=== PATIENT | female | born 1935 | race Caucasian/White ===

== ENCOUNTER 2018-07-19 10:12 | Outpatient (CLI) | payer MEDICARE, OTHER, SELFPAY ==
--- NOTE | 2018-07-19 10:06 | DI.RAD_ITS ---
SYMPTOMS/DIAGNOSIS: PAIN RIGHT FOOT: Three views. No acute fracture or dislocation is seen. At the 1st metatarsophalangeal joint, there is joint space narrowing and periarticular spurring. There are prominent osteophytes at the talonavicular joint. Mild degenerative changes are also noted at the tarsometatarsal joints and the interphalangeal joints of the foot. Subchondral cysts are seen at several joints, particularly the 2nd metatarsophalangeal joint. The soft tissues are grossly unremarkable. There do appear to be hammertoe deformities of the 2nd, 3rd and 4th toes. IMPRESSION: Degenerative changes of the right foot.
== END 2018-07-19 10:32 ==
PROVIDERS: PCP Emergency Medicine; Visit Provider Orthopaedic Surgery
DX: M19.071 Primary osteoarthritis, right ankle and foot; Z96.653 Presence of artificial knee joint, bilateral
CPT/HCPCS: 99214; 73630; L1902

== ENCOUNTER 2018-08-16 11:29 | Outpatient (CLI) | payer MEDICARE, OTHER, SELFPAY ==
[2018-08-16 13:07] LABS: Anion Gap 7.3 mmol/L (3-11); BUN 23 mg/dL (7-18); CO2 29.7 mmol/L (21.0-32.0); CREATININE 1.01 mg/dL (0.55-1.02); Calcium 9.4 mg/dL (8.5-10.1); Chloride 102 mmol/L (98-107); Estimated GFR 52.74 (mL/min/1.73m2); Glucose 97 mg/dL (70-100); Potassium 4.7 mmol/L (3.5-5.1); Sodium 139 mmol/L (136-145)
== END 2018-08-16 11:49 ==
PROVIDERS: PCP Emergency Medicine; Visit Provider Emergency Medicine
DX: I10 Essential (primary) hypertension (principal)
CPT/HCPCS: 36415; 80048

== ENCOUNTER 2019-08-29 08:14 | Outpatient (CLI) | payer MEDICARE, OTHER, SELFPAY ==
[2019-08-29 10:52] LABS: Anion Gap 8.1 mmol/L (3-11); BUN 22 mg/dL (7-18); CO2 28.9 mmol/L (21.0-32.0); CREATININE 0.92 mg/dL (0.55-1.02); Calcium 8.9 mg/dL (8.5-10.1); Chloride 103 mmol/L (98-107); Estimated GFR 58.59 (mL/min/1.73m2); Glucose 92 mg/dL (74-106); Potassium 4.4 mmol/L (3.5-5.1); Sodium 140 mmol/L (136-145)
== END 2019-08-29 08:34 ==
PROVIDERS: PCP Emergency Medicine; Visit Provider Emergency Medicine
DX: I10 Essential (primary) hypertension (principal)
CPT/HCPCS: 36415; 80048

== ENCOUNTER → 2019-10-31 08:40 | Outpatient (BNVA) | payer MEDICARE, OTHER, SELFPAY | PROVIDERS: PCP Emergency Medicine; Referring Provider Emergency Medicine; Visit Provider Surgery | DX: Z12.11 Encounter for screening for malignant neoplasm of colon (principal); Z12.12 Encounter for screening for malignant neoplasm of rectum ==

== ENCOUNTER 2019-11-13 06:05 | Day surgery (SDC) | payer MEDICARE, SELFPAY ==
[2019-11-13 06:39] VITALS: BP 177/81; PULSE 78; RESP 16; TEMP 36.6; O2SAT 95
--- NOTE | 2019-11-13 06:41 | W.COLOREPORT ---
Date of service: 11/13/19 Time of Service: :57 Colonoscopy Report Date of procedure: 11/13/19 Pre-op diagnosis general: Colon Cancer Screening, Hx of colon polyp Post-op diagnosis procedure note: other (polyps and diverticulosis) Procedure: Colonoscopy with polypectomy Surgeon: Nery Fofana Anesthesia proc note operative: other (General/ ASA 2/Dinesh Bustillos, CHAITANYA ) Estimated blood loss (mL): 3 Pathology: other (Transverse polyp, Sigmoid polyps x3) Complications: None Disposition: same day Indications: Mrs. Fabian is a pleasant 84-year-old female who is in very good health and is referred to my office today for a screening colonoscopy. Her last colonoscopy was in 2006. At that time she was noted to have one hyperplastic polyp and diverticulosis. She denies any changes in bowel habits, melena, hematochezia, unintentional weight loss or family history of colon cancer. Risks, benefits and complications have been reviewed. Complications include but are not limited to bleeding, pain, perforation, missed small lesion/polyp, sore throat, aspiration and adverse reaction to the medications. Questions were entertained and answered to their satisfaction and they wished to proceed. No guarantees were given or implied. Prep: Miralax/Dulcolax Procedure Start Time: 07:30 Procedure End Time: :57 Retraction Time: 19 minutes Findings: 4 small sessile polyps and moderate diverticulosis Procedure Description: After informed consent was obtained the patient was taken to the procedure room and placed in a left decubitous position. Monitors were applied and a time out was done. The patients name, date of , procedure, allergies to medications and metal in their body was reviewed. The patient was then sedated. Once sedated and comfortable a rectal exam was done. External exam was normal. Internal exam revealed a normal sphincter tone and no palpable masses. The scope was then introduced and retro-flexed. No internal hemorrhoids were identified. The scope was then advanced to the cecum without difficulty. The TI and appendiceal orifice were identified. The prep was adequate. The scope was then slowly retracted over 19 minutes back into the rectum. Polyps were removed with cold forceps in the transverse colon and sigmoid colon x3. There was moderate diverticulosis of the descending and sigmoid colon. The scope was removed and the patient was woken up and taken back to Same day surgery in stable condition. The patient tolerated the procedure well and there were no immediate complications. Follow up: The patient should follow up in as needed due to her age, unless they develop changes in bowel habits or other new gastrointestinal complaints.
--- NOTE | 2019-11-13 06:42 | W.PM.DSUDISC ---
Discharge Plan Disposition Patient Disposition: HOME Condition: Good Discharge Details Reason For Visit: Colon Cancer Screening Attending Provider: Nery Fofana Primary Care Provider: Hamilton Swanson Home Meds and New Rx's Prescriptions: Continued aspirin [Aspirin Low-Strength] 81 MG tablet,chewable 1 tab.chew PO DAILY RF: 0 ergocalciferol (vitamin D2) 400 UNIT tablet 400 units PO DAILY RF: 0 naproxen sodium [Aleve] 220 MG capsule 440 mg PO PRN PRNRF: 0 lisinopril-hydrochlorothiazide 10-12.5 mg tablet 1 tab PO DAILY Qty: 90 RF: 4 pravastatin 20 mg tablet 20 mg PO DAILY Qty: 90 RF: 4 tumeric/pepper 4 tab PO DAILY RF: 0 50 Plus Adult [facility] Health 1 EACH capsule 1 ea PO DAILY RF: 0 Discontinued bisacodyl [Dulcolax (bisacodyl)] 5 mg tablet,delayed release (DR/EC) 5 mg PO ONCE Qty: 4 RF: 0 polyethylene glycol 3350 17 gram powder in packet 255 g PO DAILY Qty: 15 RF: 0 Discharge Instructions Instructions: Diverticulosis (DC), Colorectal Polyps (GEN) Additional Instructions: Findings: 4 small polyps Diverticulosis Follow up: as needed Please call if you develop: fevers >101.5 Nausea or Vomiting Abdominal pain that is not transient DAY SURGERY UNIT POST ENDOSCOPY INSTRUCTIONS 1. Because there will be medication in your system for the next 24 hours, you may feel a little sleepy. Your coordination will be affected. Therefore: a. Do not drive or operate dangerous equipment for 24 hours. b. Do not drink alcohol beverages for 24 hours (not even beer). c. Plan to go home and rest for the day. 2. Generally there are no restrictions on your activity after a day or so has gone by, but you may feel a bit fatigued for a few days. 3 After you arrive home you may have a light meal and return to a normal diet as you can tolerate it without feeling sick to your stomach. 4. After surgery, you may feel pain or discomfort. This should be only transient, but if it persists please contact your doctor. 5. If there are any questions regarding the findings of your procedure, please feel free to contact your doctor. 6. If you are unable to contact your doctor with a problem, contact the hospital at [phone]. 7. Continue all your regular medications unless directed otherwise. I understand the above instructions and have no questions. Signature of Patient or Responsible Adult Escort Date/Time Name of Responsible Adult Escort Signature of Nurse Date/Time Activity:: Activity as Tolerated Diet:: High Fiebr diet Discharge Orders Discharge Orders: Discharge Order (Routine); Ordered 11/13/19 Ordered By: Nery Fofana
[2019-11-13] MEDS: Lactated Ringers 1,000 ML 80 ML IV (07:05)
--- NOTE | 2019-11-13 07:42 | BOWEL_PTH ---
PATIENT: Neal Fabian LOC: [facility] U#:[id number] AGE/SX: 84/F ROOM: RE11/13/[address]: Nery Fofana MD : [id number] BED: DIS: 11/13/2019 SPEC #: [id number] RECD: 11/13/19 12:32 STATUS: BESSIE REQ #: [id number] MAGNO: 11/13/19 07:[address]: Nery Fofana DEPT: Surgical Specimen RECD BY: iSena Salcedo ENTERED: 11/13/19 12:33 SP TYPE: Bowel OTHR DR: Hamilton Swanson DO Tissues: 1 - BIOPSY BOWEL 2 - BIOPSY BOWEL Procedures: GROSS AND MICRO LEVEL 4 Comments: [id number]
[2019-11-13 09:23] VITALS: BP 139/61; PULSE 68; RESP 20; TEMP 36.4; O2SAT 95
== END 2019-11-13 09:15 | disposition home or self-care (01) ==
PROVIDERS: PCP Emergency Medicine; Visit Provider Surgery
PROC: 0DJD8ZZ Inspection of Lower Intestinal Tract, Via Natural or Artificial Opening Endoscopic (ICD-10-PCS; CPT 45378; principal; 2019-11-13 07:30)
DX: Z12.11 Encounter for screening for malignant neoplasm of colon (principal); D12.3 Benign neoplasm of transverse colon; K63.5 Polyp of colon; K57.30 Diverticulosis of large intestine without perforation or abscess without bleeding; Z87.19 Personal history of other diseases of the digestive system; I10 Essential (primary) hypertension
CPT/HCPCS: 45380; 88305

== ENCOUNTER 2020-06-05 11:24 | Outpatient (CLI) | payer MEDICARE, OTHER, SELFPAY ==
--- NOTE | 2020-06-05 11:00 | DI.RAD_ITS ---
EXAM: XR KNEE RT 2V AP,LAT INDICATION: right knee pain. COMPARISON: CR RIGHT KNEE LIMITED 1 OR 2 VIEW from 05/26/2017 CR RIGHT KNEE LIMITED 1 OR 2 VIEW from 07/12/2017 TECHNIQUE: 2D digital imaging was performed. 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 DATA REPOSITORY: RADIATION DOSE DELIVERED:
== END 2020-06-05 11:44 ==
PROVIDERS: PCP Emergency Medicine; Referring Provider Emergency Medicine; Visit Provider Orthopaedic Surgery
DX: M25.561 Pain in right knee (principal); M70.51 Other bursitis of knee, right knee; Z96.653 Presence of artificial knee joint, bilateral; I10 Essential (primary) hypertension
CPT/HCPCS: 99213; 73560

== ENCOUNTER 2021-07-03 10:19 | Outpatient (CLI) | payer MEDICARE, OTHER, SELFPAY ==
[2021-07-03 12:29] LABS: Anion Gap 8.6 mmol/L (3-11); BUN 25 mg/dL (7-18); CO2 28.4 mmol/L (21.0-32.0); Calcium 9.5 mg/dL (8.5-10.1); Chloride 102 mmol/L (98-107); Estimated GFR 52.95 (mL/min/1.73m2); Glucose 87 mg/dL (74-106); Potassium 4.8 mmol/L (3.5-5.1); Sodium 139 mmol/L (136-145)
== END 2021-07-03 10:20 | disposition home or self-care (01) ==
LOC: LOS 10:20
PROVIDERS: PCP Emergency Medicine; Visit Provider Emergency Medicine
DX: I10 Essential (primary) hypertension (principal)
CPT/HCPCS: 36415; 80048

== ENCOUNTER 2021-11-21 10:56 | Outpatient (CLI) | payer MEDICARE, OTHER, SELFPAY ==
--- NOTE | 2021-11-21 10:53 | DI.RAD_ITS ---
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 The components appear wel l seated. No other significant bony abnormality seen. IMPRESSION: RADIATION DOSE DELIVERED: Total DLP
--- NOTE | 2021-11-21 10:53 | DI.RAD_ITS ---
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 The components appear wel l seated. No other significant bony abnormality seen. IMPRESSION: RADIATION DOSE DELIVERED: Total DLP
== END 2021-11-21 10:57 | disposition home or self-care (01) ==
LOC: DIORS 10:57
PROVIDERS: PCP Emergency Medicine; Referring Provider Emergency Medicine; Visit Provider Student in an Organized Health Care Education/Training Program
DX: T84.84XA Pain due to internal orthopedic prosthetic devices, implants and grafts, initial encounter (principal); Z96.653 Presence of artificial knee joint, bilateral; M25.561 Pain in right knee; M70.51 Other bursitis of knee, right knee; M25.562 Pain in left knee
CPT/HCPCS: 99214; 73560

== ENCOUNTER 2022-05-01 09:28 | Outpatient (CLI) | payer MEDICARE, SELFPAY ==
[2022-05-01 13:26] LABS: Calculated LDL 123 mg/dL (<100); Cholesterol 214 mg/dL (<200); HDL Cholesterol 62 mg/dL (40-60); Triglyceride 148 mg/dL (<150)
== END 2022-05-01 09:29 | disposition home or self-care (01) ==
LOC: LOS 09:29
PROVIDERS: PCP Family Medicine; Visit Provider Emergency Medicine
DX: I10 Essential (primary) hypertension (principal)
CPT/HCPCS: 36415; 80061

== ENCOUNTER → 2022-06-25 11:05 | Outpatient (CLI) | payer MEDICARE, SELFPAY ==
--- NOTE | 2022-06-25 07:00 | DI.RAD_ITS ---
Exam(s) XR SHOULDER RT COMPLETE 2+V EXAM: XR SHOULDER RT COMPLETE 2+V CLINICAL HISTORY: right shoulder pain,subacromial bursitis, m75.51 TECHNIQUE: COMPARISON: No exams were available for comparison FINDINGS: Five views were obtained. There a appears to be mild narrowing of the glenohumeral cartilaginous amadeo nt space. There are moderate hypertrophic degenerative changes at the AC joint and glenohumeral join t. No soft tissue calcification identified. No other significant bony or soft tissue abnormality se en. IMPRESSION: RADIATION DOSE DELIVERED: Total DLP
== END ==
PROVIDERS: PCP Family Medicine; Visit Provider Family Medicine
DX: M75.51 Bursitis of right shoulder (principal)
CPT/HCPCS: 73030

== ENCOUNTER 2022-08-28 01:07 | Outpatient (CLI) | payer MEDICARE, SELFPAY ==
[2022-08-28 12:58] LABS: Anion Gap 8.4 mmol/L (3-11); BUN 29 mg/dL (7-18); CO2 28.6 mmol/L (21.0-32.0); Calcium 9.4 mg/dL (8.5-10.1); Chloride 101 mmol/L (98-107); Estimated GFR 55.55 (mL/min/1.73m2); Glucose 97 mg/dL (74-106); Sodium 138 mmol/L (136-145)
== END 2022-08-28 01:08 | disposition home or self-care (01) ==
LOC: LBO 01:07
PROVIDERS: PCP Family Medicine; Visit Provider Family Medicine
DX: I10 Essential (primary) hypertension (principal)
CPT/HCPCS: 36415; 80048

== ENCOUNTER 2023-06-28 03:29 | Outpatient (CLI) | payer MEDICARE, SELFPAY ==
[2023-06-28 12:40] LABS: Anion Gap 10.7 mmol/L (3-11); BUN 27 mg/dL (7-18); CO2 26.3 mmol/L (21.0-32.0); CREATININE 1.1 mg/dL (0.55-1.02); Calcium 9.6 mg/dL (8.5-10.1); Chloride 101 mmol/L (98-107); Estimated GFR 49.24 (mL/min/1.73m2); Glucose 95 mg/dL (74-106); Potassium 4.2 mmol/L (3.5-5.1); Sodium 138 mmol/L (136-145)
== END 2023-06-28 03:30 | disposition home or self-care (01) ==
PROVIDERS: PCP Family Medicine; Visit Provider Family Medicine
DX: I10 Essential (primary) hypertension (principal)
CPT/HCPCS: 36415; 80048

== ENCOUNTER 2024-01-25 05:01 | Outpatient (CLI) | payer MEDICARE, SELFPAY ==
[2024-01-25 12:24] LABS: Anion Gap 6.5 mmol/L (3-11); BUN 26 mg/dL (7-18); CO2 28.5 mmol/L (21.0-32.0); CREATININE 1.4 mg/dL (0.55-1.02); Calcium 9.7 mg/dL (8.5-10.1); Chloride 103 mmol/L (98-107); Estimated GFR 36.64 (mL/min/1.73m2); Glucose 115 mg/dL (74-106); Magnesium 1.8 mg/dL (1.8-2.4); Potassium 4.4 mmol/L (3.5-5.1); Sodium 138 mmol/L (136-145)
== END 2024-01-25 05:02 | disposition home or self-care (01) ==
LOC: LOS 05:01
PROVIDERS: PCP Family Medicine; Visit Provider Family Medicine
DX: I10 Essential (primary) hypertension (principal)
CPT/HCPCS: 36415; 80048; 83735

== ENCOUNTER 2024-03-13 03:20 | Outpatient (CLI) | payer MEDICARE, SELFPAY ==
[2024-03-13 13:00] LABS: Anion Gap 8.8 mmol/L (3-11); BUN 34 mg/dL (7-18); CO2 27.2 mmol/L (21.0-32.0); CREATININE 1.2 mg/dL (0.55-1.02); Calcium 9.2 mg/dL (8.5-10.1); Chloride 100 mmol/L (98-107); Estimated GFR 44.08 (mL/min/1.73m2); Glucose 102 mg/dL (74-106); Potassium 4.7 mmol/L (3.5-5.1); Sodium 136 mmol/L (136-145)
== END 2024-03-13 03:21 | disposition home or self-care (01) ==
LOC: LOS 03:20
PROVIDERS: PCP Family Medicine; Visit Provider Family Medicine
DX: I10 Essential (primary) hypertension (principal)
CPT/HCPCS: 36415; 80048

== ENCOUNTER 2025-01-08 09:30 | Outpatient (CLI) | payer MEDICARE, SELFPAY ==
[2025-01-08 12:38] LABS: Anion Gap 6.6 mmol/L (3-11); BUN 34 mg/dL (7-18); CO2 29.4 mmol/L (21.0-32.0); CREATININE 1.2 mg/dL (0.55-1.02); Calcium 9.6 mg/dL (8.5-10.1); Chloride 103 mmol/L (98-107); Estimated GFR 43.81 (mL/min/1.73m2); Glucose 94 mg/dL (74-106); Potassium 4.7 mmol/L (3.5-5.1); Sodium 139 mmol/L (136-145)
== END 2025-01-08 09:31 | disposition home or self-care (01) ==
LOC: LOS 09:30
PROVIDERS: PCP Family Medicine; Visit Provider Family Medicine
DX: Z13.1 Encounter for screening for diabetes mellitus (principal); I10 Essential (primary) hypertension
CPT/HCPCS: 36415; 80048

== ENCOUNTER 2025-07-16 03:35 | Outpatient (CLI) | payer MEDICARE, SELFPAY ==
[2025-07-16 14:08] LABS: Anion Gap 6.9 mmol/L (3-11); BUN 31 mg/dL (7-18); CO2 29.1 mmol/L (21.0-32.0); Calcium 9.1 mg/dL (8.5-10.1); Chloride 99 mmol/L (98-107); Glucose 83 mg/dL (74-106); Potassium 4.4 mmol/L (3.5-5.1); Sodium 135 mmol/L (136-145)
== END 2025-07-16 03:36 | disposition home or self-care (01) ==
LOC: LOS 03:35
PROVIDERS: PCP Family Medicine; Visit Provider Family Medicine
DX: I10 Essential (primary) hypertension (principal); N18.32 Chronic kidney disease, stage 3b
CPT/HCPCS: 36415; 80048